=== PATIENT | female | born 1975 | race Caucasian/White ===

== ENCOUNTER 2023-08-25 08:55 | Emergency (ER) | payer OTHER, SELFPAY ==
[2023-08-25 09:01] VITALS: BP 127/81; PULSE 79; RESP 16; TEMP 35.7; O2SAT 98
--- NOTE | 2023-08-25 09:17 | ED.URI ---
HPI - URI/Sore Throat General Chief Complaint: Ear Stated Complaint: Left Ear Pain Time Seen by Provider: 08/25/23 09:17 Source: patient Mode of arrival: ambulatory Limitations: no limitations History of Present Illness HPI Narrative: 48-year-old female presents with complaint of right ear pain starting last night. States that she put hydrogen peroxide in her ear because that is what her mom told her to do. No changes to hearing. Afebrile. Recent URI symptoms. All systems reviewed and negative except as noted above. Related Data Allergies Allergy/AdvReac Type Severity Reaction Status Date / Time codeine Allergy Unknown RASH Unverified 08/25/23 09:29 Review of Systems Review of Systems: CONSTITUTIONAL: Denies fever, chills, or sweats. EYES: Denies visual changes, redness, or discharge. ENT: Denies rhinorrhea, congestion, sore throat. Reports right ear pain. CARDIOVASCULAR: Denies chest pain, palpitations, or edema. RESPIRATORY: Denies cough or dyspnea. GASTROINTESTINAL: Denies abdominal pain, nausea, vomiting, or diarrhea. GENITOURINARY: Denies dysuria or hematuria. SKIN: Denies rash or itching. MUSCULOSKELETAL: Denies back pain, joint pain, or myalgia. NEUROLOGIC: Denies headache, numbness, or weakness. PSYCHIATRIC: Denies anxiety or depression. All other systems reviewed are negative, except as documented in HPI. PMFSH Comments At time of signature, agree with nursing past medical, surgical, social and family history. There is no relevant family history pertinent to the presenting complaint. Exam Narrative: GENERAL: This is a well-nourished, well-developed patient, in no apparent distress. HEAD: normocephalic, atraumatic. EYES: PERRL. Sclera clear/white. Vision is grossly intact. EARS: External ears normal, auditory canals clear and without drainage, left TM normal. Right TM small amount of clear fluid. No erythema or perforation bilaterally. Hearing grossly intact. NOSE: External nose normal with no obvious nasal discharge, nares without redness, no rhinorrhea. NECK: Neck supple, non-tender without lymphadenopathy, masses or thyromegaly. CARDIOVASCULAR: Regular rate and rhythm without murmurs, gallops, or rubs. RESPIRATORY: Clear to auscultation. Breath sounds equal bilaterally. No wheezes, rales, or rhonchi. SKIN: warm, Dry, intact with no suspicious lesions or rash, good texture and turgor. NEURO: awake, alert, and oriented to person, place and time. There were no obvious focal neurologic abnormalities. EXTREMITIES: No joint tenderness, effusion, or edema noted. Course Course Level of Care: Express Care Visit Vital Signs Vital signs: Vital Signs Temperature 35.7 C L 08/25/23 09:01 Pulse Rate 79 08/25/23 09:01 Respiratory Rate 16 08/25/23 09:01 Blood Pressure 127/81 08/25/23 09:01 Pulse Oximetry 98 08/25/23 09:01 Oxygen Delivery Room Air 08/25/23 09:01 Temperature 35.7 C L 08/25/23 09:01 Pulse Rate 79 08/25/23 09:01 Respiratory Rate 16 08/25/23 09:01 Blood Pressure 127/81 08/25/23 09:01 Pulse Oximetry 98 08/25/23 09:01 Oxygen Delivery Room Air 08/25/23 09:01 Reviewed MDM - URI/Sore Throat MDM Narrative Medical decision making narrative: Patient is aware of diagnosis, understands and agrees to treatment plan. Anticipatory guidance given. Patient agrees to follow-up as directed and is aware of reasons to seek care at the emergency department. Portions of this record may have been created with voice recognition software Discharge Plan Discharge Clinical Impression: Acute serous otitis media of right ear Qualifiers: Recurrence: not specified as recurrent Qualified Code(s): H65.01 - Acute serous otitis media, right ear Patient Disposition: Home, Self-Care Condition: Stable Instructions: Antibiotic Form, Fluid In The Ear (Serous Otitis Media) (ED) Additional Instructions: There were no signs of infection to right ear today. A sma
== END 2023-08-25 09:50 | disposition home or self-care (01) ==
PROVIDERS: Emergency Provider Nurse Practitioner Family
DX: H65.01 Acute serous otitis media, right ear (principal)
CPT/HCPCS: 99203; G0463